=== PATIENT | female | born 1970 | race Caucasian/White ===

== ENCOUNTER 2021-11-28 17:46 | Emergency (ER) | payer BC, OTHER, SELFPAY ==
[~2021-11-28] VITALS: Ht 167.6 cm; Wt 108.9 kg
[2021-11-28 17:59] VITALS: BP_SYST 123
[2021-11-28 19:09] LABS: BASOPHILS # (AUTO) 0.1 K/uL (0.0-0.2); BASOPHILS % (AUTO) 1.4 % (0.0-2.0); EOSINOPHILS # (AUTO) 0.3 K/uL (0.0-0.4); EOSINOPHILS % (AUTO) 3.4 % (0.0-4.0); HEMATOCRIT 41.3 % (36-48); HEMOGLOBIN 13.6 g/dL (12.0-16.0); LYMPHOCYTES % (AUTO) 44.4 % (20.5-51.5); MEAN CORPUSCULAR HEMOGLOBIN 31 pg (27-31); MEAN CORPUSCULAR HGB CONC 33 % (32-36); MEAN CORPUSCULAR VOLUME 93 fL (79.0-98.0); MONOCYTES # (AUTO) 0.6 K/uL (0.0-1.0); MONOCYTES % (AUTO) 7.1 % (1.7-9.3); NEUTROPHILS # (AUTO) 3.9 K/uL (1.8-7.7); NEUTROPHILS % (AUTO) 43.7 % (40.0-70.0); PLATELET COUNT (AUTO) 199 K/uL (130-430); RED BLOOD CELL COUNT(AUTO) 4.43 MIL/uL (4.2-6.2); RED CELL DISTRIBUTION WIDTH 13.9 % (9.0-15.0)
[2021-11-28 19:51] LABS: CALCIUM 9.2 mg/dL (8.4-11.0); CREATININE 0.75 mg/dL (0.55-1.30)
[2021-11-28 19:59] LABS: ALBUMIN 3.9 g/dL (3.4-4.8); PHOSPHORUS 4.4 mg/dL (2.7-4.5); TOTAL BILIRUBIN 0.1 mg/dL (0.0-1.0)
[2021-11-29 01:02] VITALS: BP_SYST 128
== END 2021-11-29 01:02 | disposition home or self-care (01) ==
LOC: SED 17:46
DX: R07.89 Other chest pain (principal)
CPT/HCPCS: 36415; 71045; 80053; 83735; 84100; 84484; 85025; 93005; 99285